=== PATIENT | male | born 1940 | race Caucasian/White ===

== ENCOUNTER 2016-06-07 09:38 | Outpatient (CLI) ==
[2014-05-07 02:26] VITALS: BMI 31.0
--- NOTE | 2016-06-07 10:08 | DI ---
EXAM: PA and lateral views of the chest HISTORY: Bronchitis COMPARISON: Chest x-ray 11/21/[address] chest 06/16/2015 FINDINGS: The cardiomediastinal silhouette is unchanged. There is no pneumothorax or pleural effus ion. There is flattening of the diaphragm. There are interstitial opacities and patchy consolidati on in the right and left lower lobe, worse on the right which are not significantly changed in liu rison to prior CT. The osseous structures are unchanged. IMPRESSION: 1. No change in bibasilar consolidations with interstitial opacities and bronchiectasis. These fin dings are not significantly changed when compared to CT chest. 2. No acute cardiopulmonary process.
== END 2016-06-07 09:39 | disposition home or self-care (01) ==
LOC: RAD 09:38
PROVIDERS: ATTEND Family Medicine
DX: J40 Bronchitis, not specified as acute or chronic (principal); J84.10 Pulmonary fibrosis, unspecified; J96.11 Chronic respiratory failure with hypoxia; E11.9 Type 2 diabetes mellitus without complications

== ENCOUNTER 2017-03-22 13:19 | Emergency (ER) ==
[2017-03-22] MEDS: EPINEPHRINE 1:10,000 SYRINGE IV PRN ×7 (13:19→13:36)
[2017-03-22] MEDS: SODIUM BICARBONATE 7.5% IVP PRN ×2 (13:21→13:27)
[2017-03-22 13:31] VITALS: BP 00/00; TEMP 0; BMI 38.0
--- NOTE | 2017-03-22 14:05 | ED.PDOC ---
General ED Provider: Dr. LISA CHOU Chief Complaint: Cardiac Arrest Stated Complaint: Ambulance was called to the home with patient complaining of vision disturbances headache and shallow breathing. It took 12 mins for the ambulacne to get there. Upon arrival EMS states he was unresponsive and not breathing. He had an LMA placed and CPR was started. It took them5-10 min to get to the hospital. Time Seen by Physician: 14:03 Mode of Arrival: Ambulance Information Source: Family, EMT Exam Limitations: No limitations Primary Care Provider: MARTHA CAMP Nursing and Triage Documentation Reviewed and Agree: Yes Cardiac Resuscitation - Cardiac Resuscitation/Physical Exam Onset/Duration: Minutes Witnessed Arrest: Yes Down-time Before BLS Initiated: 12 min Down-time Before ALS Initiated: 12 Airway Prehospital Findings: Reports: Patent Breathing Prehospital Findings: Reports: Apnea Circulation/Rhythm Prehospital Findings: Reports: Pulses absent, Asystole Disability/Neurological Prehospital Findings: Reports: Unresponsive (pupil unreactive ) Airway Prehospital Intervention: Reports: Jaw thrust Breathing Prehospital Intervention: Reports: Bag-valve mask, Intubation (LMA) Circulation/Rhythm Prehospital Intervention: Reports: Chest compressions, Epinephrine Airway Prehospital Response: no spontenous breathing Breathing Prehospital Response: Present: Equal breath sounds Circulation/Rhythm Prehospital Response: Present: Pulses absent, Asystole Total Down Time CERTIFIED ATHLETIC TRAINER: 20 Airway ED Findings: Patent Breathing ED Findings: Present: Apnea, Rales Circulation/Rhythm ED Findings: Present: Pulses absent, PEA Disability/Neurological ED Findings: Present: Unresponsive Airway ED Intervention: Chin lift Breathing ED Intervention: Oxygen, Bag-valve mask, ETT replaced, Intubated by ED physician Circulation/Rhythm ED Intervention: Chest compressions Right Pupil: Fixed, Dilated Left Pupil: Fixed, Dilated EMS/Code Sheet Reviewed: Yes Patient is a DNR: No (CPR only but did not tell EMS ) Patient Has a Living Will: Yes Resuscitation Successful: No Terminated At: 1340 Preliminary Cause of : Cerebella Stroke Differential Diagnoses: Asystole, PEA, Sudden Past Medical History - Past Medical History Previously Healthy: Yes Endocrine: Reports: None Cardiovascular: Reports: None 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) Hematological: Reports: None Gastrointestinal: Reports: None Genitourinary: Reports: None Neuro/Psych: Reports: None Musculoskeletal: Reports: None Cancer: Reports: None - Surgical History General Surgical History: Reports: Orthopedic (2 knee replacements, cataracts ) - Family History Family History: Reports: None - Social History Smoking Status: Unknown if ever smoked Hx Substance Use: No Alcohol Screening: None Procedures - Intubation Indication: Present: Altered Mental Status Time of Intubation: 13:19 Type of Tube Used: Endotracheal Tube Size: 7 Cricoid Pressure Used: No Tube Pickering Used: Yes Position of Tube at Lip: 23 Number of Attempts: 1 Suction Used: Yes Glidescope Used: No CO2 Detector Used: Yes Lung Sounds Equal Bilaterally: Yes Intubation Complications: Present: No complications Tube Inserted By: physician Tube Placement Verified by X-ray: No (Patient . ) Re-Evaluation - Re-Evaluation Time of Re-Evaluation: 13:38 Status: Unchanged Physician Notification - Case Discussed Physician Notified: jay Critical Care Note - Critical Care Note Total Time (mins): 40 Course - Course Hematology/Chemistry: 03/22/17 13:30 03/22/17 13:30 Orders, Labs, Meds: Lab Review 03/22/17 03/22/17 03/22/17 13:30 13:30 14:02 WBC 15.21 H RBC 4.72 Hgb 15.9 Hct 47.4 MCV 100.4 H MCH 33.7 H MCHC 33.5 RDW Coeff of Flip 12.5 Plt Count 136 L Immature Gran % (Auto) 1.9 Neut % (Auto) 37.6 Lymph % (Auto) 50.5 H Mora % (Auto) 5.8 Eos % (Auto) 3.5 Baso % (Auto) 0.7 Immature Gran # (Auto) 0.3 Neut # 5.7 Lymph # 7.7 H Mora # 0.9 Eos # 0.5 Baso # 0.1 Puncture Site Rbrach O2 Saturation 96.0 ABG pH 7.403 ABG pCO2 26.5 L ABG pO2 83.0 L ABG HCO3 16.5 L ABG Total CO2 17 L ABG Base Excess -8 L O2 Delivery Device Nrb Oxygen Liter Flow 15.00 FiO2 % 100.0 Sodium 167 H* Potassium 4.2 Chloride 103 Carbon Dioxide 36 H Anion Gap 32.2 BUN 17 Creatinine 1.16 H Estimated GFR (MDRD) 62.00 BUN/Creatinine Ratio 14.65 Glucose 437 H Calcium 7.8 L Total Bilirubin 0.63 AST 94 H ALT 59 Alkaline Phosphatase 53 L Total Creatine Kinase 36 Total Protein 4.8 L Albumin 2.5 L Globulin 2.3 Albumin/Globulin Ratio 1.09 Orders Category Date Time Status ABG DRAW REQUEST Stat CARDIO 03/22/17 14:02 Completed CPR - ED ONLY Stat CARDIO 03/22/17 14:24 Completed ABG Stat LAB 03/22/17 14:02 Completed CBC W/ AUTO DIFF Stat LAB 03/22/17 13:30 Completed COMPREHENSIVE METABOLIC PANEL Stat LAB 03/22/17 13:30 Completed CREATINE KINASE Stat LAB 03/22/17 13:30 Completed Epinephrine [Epinephrine 1:10,000 Syringe] MEDS 03/22/17 14:24 Discontinued 1 mg IV PRN PRN Sodium Bicarb 7.5% [Sodium Bicarbonate 7.5%] MEDS 03/22/17 14:24 Discontinued 44.6 meq IVP PRN PRN Sodium Chloride 0.9% [Sodium Chloride] 1,000 ml MEDS 03/22/17 14:26 Discontinued IV BOLUS Sodium Chloride 0.9% [Sodium Chloride] 1,000 ml MEDS 03/22/17 14:27 Discontinued IV BOLUS Medications Discontinued Medications Generic Name Dose Route Start Last Admin Trade Name Freq PRN Reason Stop Dose Admin Epinephrine HCl 1 mg 03/22/17 14:24 03/22/17 13:36 Epinephrine 1:10,000 Syringe IV 1 mg PRN PRN Administration DIRECTED BY PHYSICIAN-CODE Sodium Chloride 1,000 mls @ 1,000 mls/hr 03/22/17 14:26 03/22/17 13:28 Sodium Chloride IV 03/22/17 15:25 1,000 mls/hr BOLUS STA Administration Sodium Chloride 1,000 mls @ 1,000 mls/hr 03/22/17 14:27 03/22/17 13:19 Sodium Chloride IV 03/22/17 15:26 1,000 mls/hr BOLUS STA Administration Sodium Bicarbonate 44.6 meq 03/22/17 14:24 03/22/17 13:27 Sodium Bicarbonate 7.5% IVP 44.6 meq PRN PRN Administration DIRECTED BY PHYSICIAN-CODE Vital Signs: Temp Pulse Resp BP Pulse Ox 03/22/17 13:20 0 F L 0 L 20 00/00 L 0 L Departure - Departure Time of Disposition: 14:05 Disposition: Discharge Problem: Cerebellar stroke, acute, Cardiac arrest Condition: Pt referred to PMD for follow-up: No ( ) Allergies/Adverse Reactions: Allergies Unobtainable Allergy (Verified 03/22/17 14:37) CARDIAC ARREST Home Medications: Ambulatory Orders 1 [Unobtainable] 03/22/17
[2017-03-22 14:06] LABS: BASOPHILS # (AUTO) 0.1 K/uL (0-0.2); BASOPHILS % (AUTO) 0.7 % (0.0-3.0); EOSINOPHILS # (AUTO) 0.5 K/ul (0.0-0.7); EOSINOPHILS % (AUTO) 3.5 % (0.0-7.0); HEMATOCRIT 47.4 % (42.0-52.0); HEMOGLOBIN 15.9 g/dl (14.0-18.0); IMMATURE GRANULOCYTE % (AUTO) 1.9 % (0.0-5.0); LYMPHOCYTES # (AUTO) 7.7 K/uL (0.60-3.4); LYMPHOCYTES % (AUTO) 50.5 (10.0-50.0); MEAN CORPUSCULAR HEMOGLOBIN 33.7 pg (27.0-31.0); MEAN CORPUSCULAR HGB CONC 33.5 (31.8-35.4); MEAN CORPUSCULAR VOLUME 100.4 fl (80.0-94.0); MONOCYTES # (AUTO) 0.9 K/uL (0.4-2.0); MONOCYTES % (AUTO) 5.8 (0-10); NEUTROPHILS # (AUTO) 5.7 K/ul (2.0-6.9); NEUTROPHILS % (AUTO) 37.6; PLATELET COUNT 136 10^3/uL (140-440); RED BLOOD COUNT 4.72 10^6/ul (4.70-6.10); WHITE BLOOD COUNT 15.21 K/ul (4.2-10.2)
[2017-03-22 14:21] LABS: ALBUMIN 2.5 g/dL (3.4-5.0); ALBUMIN/GLOBULIN RATIO 1.09; ANION GAP 32.2; BILIRUBIN,TOTAL 0.63 mg/dL (0.00-1.20); BUN/CREATININE RATIO 14.65; CALCIUM 7.8 mg/dL (8.2-10.2); CREATININE 1.16 mg/dL (0.60-1.10); POTASSIUM 4.2 mmol/L (3.5-5.1); TOTAL PROTEIN 4.8 g/dL (5.8-8.1)
[2017-03-22 14:24] LABS: ABG PCO2 26.5 mmHg (35-45); ABG PH 7.403 (7.35-7.45)
[2017-03-22 14:25] LABS: ABG BASE EXCESS -8 (-2.0-2.0); ABG HCO3 16.5 (22.0-26.0); ABG TCO2 17 (22.0-28.0)
[2017-03-22] MEDS ORDERED: SODIUM CHLORIDE 1,000 ML IV STA ×2 (14:26→14:27)
== END 2017-03-22 16:08 | disposition expired ==
LOC: ED 13:19
DX: I63.9 Cerebral infarction, unspecified (principal); I46.9 Cardiac arrest, cause unspecified
CPT/HCPCS: 31500; 36415; 80053; 82550; 82803; 85025; 96374; 96375; 99285